=== PATIENT | female | born 1965 | race Caucasian/White ===

== ENCOUNTER 2017-08-24 10:10 | Emergency (ER) | payer MEDICAID, OTHER ==
[~2017-08-24] VITALS: Ht 167.6 cm; Wt 57.5 kg
[~2017-08-24 10:10] MED LIST: BUSP10TA PO; CITA40TA4 PO; CLIN1CAP5 PO; METO25TA3 PO; PRED20 PO
[2017-08-24 10:12] VITALS: BP 111/56; PULSE 78; RESP 18; TEMP 98.2; O2SAT 96
--- NOTE | 2017-08-24 11:16 | PD ---
HPI Chief Complaint: Cold / Flu Symptoms Time Seen by Provider: 11:04 Travel History International Travel<30 days: No Contact w/Intl Traveler<30days: No Traveled to known affect area: No History of Present Illness HPI 51-year-old female presents to emergency department for evaluation of a sore throat, cough, mild headache, and body aches after a flu shot Sunday. States she gets sick after the flu shot every time.. Cough is productive with green and white sputum however, has subjective fever with chills and nausea with 1 episode of non bilious vomiting. Pt has moderate pain with swallowing. States that she is eating and drinking normally. She denies blurry vision, neck pain or stiffness, shortness of breath, chest pain, abdominal pain, leg pain, or rash. States that last year she had a peritonsillar abscess for which she was admitted and is concerned that she may develop the same. PFSH Past Medical History Depression: Yes Cancer: No Cardiovascular Problems: No Endocrine: No Genitourinary: No Headaches: Yes Immune Disorder: No Musculoskeletal: No Neurologic: Yes Psychiatric: No Reproductive: No Respiratory: No Migraines: Yes ?: Not Past Surgical History Section: Yes Gynecologic Surgery: Yes Hysterectomy: Yes Other Surgery: No Social History Alcohol Use: Yes (occ) Tobacco Use: No Substance Use: No Allergies-Medications (Allergen,Severity, Reaction): Coded Allergies: povidone-iodine (Unverified Allergy, Mild, BURNING SENSATION, 08/24/17) erythromycin base (Unverified Allergy, Unknown, 08/24/17) Reported Meds & Prescriptions Reported Meds & Active Scripts Active Zofran (Ondansetron HCl) 4 Mg Tab 4 Mg PO Q8HR PRN Clindamycin (Clindamycin HCl) 300 Mg Cap 300 Mg PO TID Reported Metoprolol Tartrate 25 Mg Tab 25 Mg PO DAILY Citalopram (Citalopram Hydrobromide) 40 Mg Tab 40 Mg PO DAILY Review of Systems Except as stated in HPI: all other systems reviewed are Neg Physical Exam Narrative GENERAL: Well-nourished, well-developed patient, in no apparent distress. Speech normal, non muffled. SKIN: Focused skin assessment warm/dry. no rashes HEAD: Normocephalic. EYES: No scleral icterus. No injection or drainage. EARS: Bilateral pinnae and external canals appear within normal limits. No obvious erythema or exudate THROAT: Pharyngeal injection, tonsillar hypertrophy. Airway is patent. No obvious exudate NECK: Supple, trachea midline. No JVD. Mild cervical lymphadenopathy bilateral. No meningismus. CARDIOVASCULAR: Regular rate and rhythm without murmurs, gallops, or rubs. RESPIRATORY: Breath sounds equal bilaterally. No accessory muscle use. GASTROINTESTINAL: Abdomen soft, non-tender, nondistended. MUSCULOSKELETAL: No cyanosis, or edema. BACK: Nontender without obvious deformity. No CVA tenderness. Data Data Last Documented VS Vital Signs Date Time Temp Pulse Resp B/P (MAP) Pulse Ox O2 Delivery O2 Flow Rate FiO2 08/24/17 11:29 08/24/17 10:12 98.2 78 18 96 Room Air Orders Orders Ed Discharge Order (08/24/17 11:18) MDM Medical Decision Making Medical Screen Exam Complete: Yes Emergency Medical Condition: Yes Differential Diagnosis Acute viral pharyngitis versus strep pharyngitis versus viral syndrome versus allergic pharyngitis Narrative Course 51-year-old nontoxic-appearing female with a 3 day history of productive cough, sore throat, mild headache, nausea and subjective fever. States that she received her flu shot and became sick because of this, as she does every year. She is concerned because of a history of peritonsillar abscess that she developed last year. Physical exam demonstrated pharynx with moderate erythema without exudate. No meningismus. Mild cervical lymphadenopathy. Otherwise normal examination Because of patient's history of peritonsillar abscess we will empirically treat to reduce complications and refer to ENT. Strict instructions to return to ED for worsening symptoms. Diagnosis Primary Impression: Acute pharyngitis Qualified Codes: J02.9 - Acute pharyngitis, unspecified Referrals: Ear / Nose / Throat Specialist Primary Care Physician Additional Instructions: Return to primary care physician within 2 days. Advised to follow-up with ear nose and throat doctor for evaluation of the sore throat Take antibiotics as prescribed May use salt water gargles for symptom relief Continue tylenol for fever reduction Scripts Ondansetron (Zofran) 4 Mg Tab 4 MG PO Q8HR Y for NAUSEA OR VOMITING, #7 TAB 0 Refills Prov: Rodrigo Del Angel MD 08/24/17 Clindamycin (Clindamycin) 300 Mg Cap 300 MG PO TID for Infection, #21 CAP 0 Refills Prov: Rodrigo Del Angel MD 08/24/17 Disposition: 01 DISCHARGE HOME Condition: Stable Kate Motley Aug 24, 2017 11:16
[2017-08-24] MEDS ORDERED: ZOFR4TAB PO (11:17)
[2017-08-24] MEDS ORDERED: CLIN1CAP6 PO (11:17)
== END 2017-08-24 11:34 | disposition home or self-care (01) ==
LOC: PHED 10:10 → PHEFT 11:34
DX: J02.9 Acute pharyngitis, unspecified (principal); R51 Headache
CPT/HCPCS: 99284